=== PATIENT | female | born 1965 | race Caucasian/White ===

== ENCOUNTER 2016-05-12 23:30 | Inpatient (IN) | payer BC ==
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
--- NOTE | ~2016-05-12 | DS ---
Discharge Summary [facility] [address] [place]. [address] NAME: JAYLEEN VERDE : 65 STATUS : DIS IN PAT#: [id number] AGE: 50 ADM/REG DATE : 05/13/16 MR#: [id number] REPORT SERV DATE: 05/16/16 DICTATED BY: KAREEN GARCIA DATE: 05/15/16 REPORT STATUS : Draft TRANSCRIBED BY: MODMeli DATE: 05/15/16 ADMISSION DATE: 05/13/2016 DISCHARGE DATE: 05/15/2016 DIAGNOSES OF DISCHARGE: 1. Right-sided pneumothorax, tension pneumothorax, resolved, status post chest tube placement and discontinued. 2. Community-acquired pneumonia, resolved. 3. Chronic obstructive pulmonary disease exacerbation. 4. Acute on chronic respiratory failure. 5. Status post tracheostomy, which she uses 2 or 3 L per trach 24 hours a day. 6. Coronary artery disease. 7. Hypertension. 8. History of cirrhosis and EtOH abuse. 9. Depression with anxiety. 10.Tobacco abuse. 11.Peripheral neuropathy. 12.Chronic pain. CONSULTANTS ON THE CASE: Dr. Kerry Amor M.D., Pulmonary. PROCEDURES DONE DURING THIS HOSPITALIZATION: None. TESTS DONE DURING THIS HOSPITALIZATION: Include a CT scan of the chest with contrast performed on 05/13/2016 that showed that the patient had complete reduction of the pneumothorax and there was airspace disease in both lung puentes consistent with pneumonia. Follow up chest x-ray showed significant improvement of the infiltrates and complete resolution of her pneumothorax. Also, other tests done during this hospitalization include a procalcitonin of 0.87 on admission and folate level of 4.4. Her BNP was 241.4, hemoglobin A1c 10.4, lactate 1.7. White count was 23,000 at admission and 13.5 at discharge. Her blood cultures have remained negative at discharge. Her UA has been negative. HOSPITAL COURSE: This is a 50-year-old female who has been having a past medical history for COPD, also history of hypertension, coronary artery disease, cirrhosis of the liver, chronic pain, and also she is status post diabetes uncontrolled, tobacco dependency, and medical noncompliance, presenting to [facility] with increasing shortness of breath and chest pain. It is important to know that she did have a permanent tracheostomy, on oxygen 24 hours, and she has been presenting to [facility] with respiratory distress as well as pneumonia, COPD exacerbation, and right tension pneumothorax. The patient has been presenting to [facility] in the emergency room and PneumoDart was placed with near resolution of her spontaneous pneumothorax. For further details, please see history and physical of Dr. Gerhard Rubin. The patient has been admitted to Hospitalist Service, placed on IV antibiotics, broad spectrum. The patient has been seen by Dr. Kerry Amor during this hospitalization and CT scan of the chest has been ordered which showed complete resolution of her pneumothorax. Her Solu-Medrol has been discontinued and changed to oral prednisone. She has been continued on bronchodilators and antibiotic treatment. Her oxygen Discharge Summary [facility] [address] [place]. [address] NAME: JAYLEEN VERDE : 65 STATUS : DIS IN [facility]#: [id number] AGE: 50 ADM/REG DATE : 05/13/16 MR#: [id number] REPORT SERV DATE: 05/16/16 DICTATED BY: KAREEN GARCIA DATE: 05/15/16 REPORT STATUS : Draft TRANSCRIBED BY: BERNADETTE DATE: 05/15/16 has been weaned down to 2 to 3 L per nasal cannula, up to 3 L per nasal cannula that she uses 24 hours a day, and on 05/15/2016, the patient has been ready for discharge. Aggressive tobacco cessation education has been provided to the patient as well and since the patient has been an active smoker up to the current admission. The patient said that she has been on insulin pump prior to admission, but none currently, because according to the patient, her insulin pump has been missing, so she has been transitioned during this hospitalization to Levemir and NovoLog before meals and peer educator consult has been obtained during this hospitalization as well. On 05/15/2016, the patient has been ready for discharge. MEDICATIONS AT DISCHARGE: Would include Levaquin 750 p.o. daily; albuterol MDI two puffs q.i.d. p.r.n. for shortness of breath; Sterapred double strength 6-day pack, #1, use as directed; Lasix 20 mg p.o. daily; potassium chloride 10 mEq p.o. daily; Lopressor 25 p.o. b.i.d., hold for blood pressure systolic less or equal 105 and/or heart rate less or equal to 60; Protonix 40 mg p.o. daily; Neurontin 800 p.o. t.i.d.; Magnesium oxide 400 p.o. b.i.d.; insulin NovoLog 15 units subcutaneously before meals; digoxin 0.125 p.o. daily; [place] 10/325 one tab p.o. q.6 hours p.r.n. pain,#10, no refills; folate 1 mg p.o. daily, aspirin 81 mg p.o. daily, Wellbutrin SR one tablet p.o. b.i.d.; insulin Lantus 25 units subcutaneously at bedtime; Atarax 50 mg p.o. t.i.d. p.r.n. anxiety, #20, no refills; Spiriva HandiHaler one inhalation daily; and Symbicort 160/4.5 two puffs b.i.d. The patient has been advised to follow up with her primary care provider in one week after discharge and Pulmonary followup with Zina Barraza, nurse practitioner of Dr. Amor, Pulmonology, in two weeks after discharge with a chest x-ray check. That has been discussed extensively with the patient. All the questions have been answered in full. I have spent more than 35 minutes at discharging patient, Elizabeth Ni, and medication reconciliation, discharge summary, discharge instructions, written prescriptions as well. CF/MODL Kareen Garcia M.D. / [id number] CC: Kareen Garcia M.D.
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
[~2016-05-12 23:30] MED LIST: ABX IM; ASAB PO; ATV1 PO; BEN25 PO; BROVANA15 MCG INH; EFFEX25 PO; GLUCOPHAGE1000 MG PO; GLUCPH PO; HCTZ25B PO; IBU800 PO; KDUR20 PO; LEVEMIR SC; LOP50 PO; LORTAB10 PO; NEUR800 PO; NEXIUM40 PO; NITROII10C TOP; NITROQUICK0.4 MG SL; NITROSTAT0.4 MG SL; NORCO1 TAB PO; NOVOPEN SC; P10 PO; PRAVACHOL40 MG PO; PRAVACHOL80 MG PO; PREMPRO1 TAB PO; PROAIR HFA INH; PROTONIX PO; PULRESP.5 INH; REG PO; V5 PO; VANCOCIN HCL125 MG PO; VIST50 PO; ZOCOR20 PO; ZOL100 PO; ZOVI200CAP PO
[2016-05-13] MEDS ORDERED: *UNABLE3 (00:59)
[2016-05-13] MEDS ORDERED: NEBULIZER SOLN RX (01:15)
[2016-05-13] MEDS ORDERED: INSULIN PUMP (01:16)
[2016-05-13] MEDS ORDERED: BLOOD PRESSURE RX (01:16)
[2016-05-13] MEDS ORDERED: ASAB PO (01:17)
[2016-05-13] MEDS ORDERED: CHOLESTEROL RX (01:17)
[2016-05-13 01:44] LABS: BASOPHILS 0.1 %; BASOPHILS ABSOLUTE 0.02 10/3/uL (0.0-0.16); EOSINOPHILS 0.1 %; EOSINOPHILS ABSOLUTE 0.02 10/3/uL (0.0-0.53); ER CBC TAT 0 Hrs 06 MinsNP; HEMATOCRIT 42.2 % (36.0-48.0); HEMOGLOBIN 15.4 g/dL (12.0-16.0); IMMATURE GRANULOCYTES 0.8 %; IMMATURE GRANULOCYTES ABSOLUTE 0.17 10/3/uL (0.0-0.11); LYMPHOCYTES 3.1 %; LYMPHOCYTES ABSOLUTE 0.68 10/3/uL (0.67-4.30); MANUAL DIFF NO %; MEAN CORPUS HGB CONC 36.5 g/dL (32.0-36.0); MEAN CORPUSCULAR HEMOGLOB 31.2 pg (26.0-34.0); MEAN CORPUSCULAR VOLUME 85.6 fL (80-100); MEAN PLATELET VOLUME 11.3 fL (9.2-13.0); MONOCYTES ABSOLUTE 0.45 10/3/uL (0.21-1.20); NEUTROPHILS 93.9 %; NEUTROPHILS ABSOLUTE 20.68 10/3/uL (2.02-8.40); PLATELET COUNT 185 10/3/uL (150-400); RBC DISTRIBUTION WIDTH 13.3 % (12.0-16.0); RED CELL COUNT 4.93 10/6/uL (4.0-5.6)
[2016-05-13 01:51] LABS: INTERNATIONAL NORMAL RATI 1.1 UNITS (-); PARTIAL THROMBO TIME 24.7 SEC (22.5-37.2); PROTIME (NOT ORD) 14.4 SEC (12.0-14.5)
[2016-05-13 01:54] LABS: INFLUENZA A SCREEN NEGATIVE (NEGATIVE); INFLUENZA B SCREEN NEGATIVE (NEGATIVE)
[2016-05-13 02:06] LABS: LACTATE 1.7 MMOL/L (0.3-2.4)
[2016-05-13 02:10] LABS: ER DIFF TAT 0 Hrs 32 Mins; LYMPHOCYTES 3 %; LYMPHOCYTES ABSOLUTE (CALC) 0.66 10/3/uL (0.67-4.30); NEUTROPHILS ABSOLUTE (CALC) 21.34 10/3/uL (2.02-8.40); PLATELET ESTIMATE ADQ (ADEQUATE); RBC MORPHOLOGY NORM (NORMAL); SEGMENTED NEUTROPHIL (0) 97 %; TOTAL NUCLEATED CELLS 100
[2016-05-13 02:18] LABS: ASCORBIC ACID (UR NOT ORDER) NEG (NEG); BILIRUBIN, URINE NEGATIVE (NEG); ER URINALYSIS TAT 0 Hrs 05 Mins; KETONE, URINE 20 MG/DL (NEG); LEUKOCYTE ESTERASE(NOT OR NEG (NEG); NITRITE (URINE) NEG (NEG); WBC (NOT ORDERED) (RFLEX) 1 (0-5)
[2016-05-13 02:33] LABS: AMPHETAMINES (NOT ORD) NEG (NEG); BARBITURATES (NOT ORDERED NEG (NEG); BENZODIAZEPINES (NOT ORD) NEG (NEG); CANNABINOIDS (THC) NEG (NEG); COCAINE (NOT ORDERED) NEG (NEG); OPIATES POS (NEG); PHENCYCLIDINE(PCP) NEG (NEG); TRICYCLICS NEG (NEG)
[2016-05-13 02:56] LABS: BUN (BLOOD UREA NITROGEN) 14 MG/DL (6-23); CALCIUM, SERUM 8.9 MG/DL (8.5-10.4); CHLORIDE, SERUM 106 MMOL/L (96-112); CO2 (CARBON DIOXIDE) 20 MMOL/L (24-34); CPK (IF ELEVATED MB BANDS) 49 U/L (0-200); CREATININE 0.78 MG/DL (0.55-1.02); GFR AFRICAN AMERICAN 103 ML/MIN (>=60); GFR NON AFRICAN AMERICAN 89 ML/MIN (>=60); GLUCOSE, SERUM 402 MG/DL (60-99); POTASSIUM, SERUM 2.9 MMOL/L (3.5-5.3); SALICYLATE 6.6 MG/DL (-); SODIUM, SERUM 139 MMOL/L (135-148); TROPONIN I 0.03 NG/ML (<0.05)
[2016-05-13 02:57] LABS: ACETAMINOPHEN LEVEL (TYLENOL) < 2.0 MCG/ML (10.0-20.0); ALCOHOL < 10 MG/DL (0); CHEST PAIN PROFILE TAT 1 Hrs 18 Mins
[2016-05-13 03:17] LABS: ACETONE NEG
[2016-05-13 03:33] LABS: PROCALCITONIN 0.34 ng/mL (<0.5)
[2016-05-13 08:31] LABS: HEMOGLOBIN 13.2 g/dL (12.0-16.0); MEAN CORPUS HGB CONC 34.8 g/dL (32.0-36.0); MEAN CORPUSCULAR HEMOGLOB 29.3 pg (26.0-34.0); MEAN PLATELET VOLUME 11.5 fL (9.2-13.0); PLATELET COUNT 200 10/3/uL (150-400); RBC DISTRIBUTION WIDTH 13.6 % (12.0-16.0); RED CELL COUNT 4.51 10/6/uL (4.0-5.6); WHITE BLOOD CELLS 23.2 10/3/uL (4.5-10.5)
[2016-05-13 08:32] LABS: HEMATOCRIT 37.9 % (36.0-48.0); MANUAL DIFF YES %
[2016-05-13 08:34] LABS: BUN (BLOOD UREA NITROGEN) 14 MG/DL (6-23); CALCIUM, SERUM 8.5 MG/DL (8.5-10.4); CHLORIDE, SERUM 106 MMOL/L (96-112); CO2 (CARBON DIOXIDE) 21 MMOL/L (24-34); CREATININE 0.77 MG/DL (0.55-1.02); GFR AFRICAN AMERICAN 104 ML/MIN (>=60); GFR NON AFRICAN AMERICAN 90 ML/MIN (>=60); SODIUM, SERUM 138 MMOL/L (135-148)
[2016-05-13 08:41] LABS: GLUCOSE, SERUM 375 MG/DL (60-99); POTASSIUM, SERUM 3.8 MMOL/L (3.5-5.3)
[2016-05-13 08:54] LABS: BAND NEUTROPHILS 5 %; LYMPHOCYTES 6 %; LYMPHOCYTES ABSOLUTE (CALC) 1.39 10/3/uL (0.67-4.30); MONOCYTES 3 %; NEUTROPHILS ABSOLUTE (CALC) 21.11 10/3/uL (2.02-8.40); PLATELET ESTIMATE ADQ (ADEQUATE); SEGMENTED NEUTROPHIL (0) 86 %; TOTAL NUCLEATED CELLS 100
[2016-05-13 08:55] LABS: RBC MORPHOLOGY NORM (NORMAL)
[2016-05-13 09:58] LABS: PROCALCITONIN 0.87 ng/mL (<0.5)
[2016-05-13] MEDS ORDERED: NEUR400 PO (15:48)
[2016-05-13] MEDS ORDERED: KLOR-CON 1010 MEQ PO (15:48)
[2016-05-13] MEDS ORDERED: NITROSTAT0.3 MG SL (15:49)
[2016-05-13] MEDS ORDERED: PROTONIX PO (15:49)
[2016-05-13] MEDS ORDERED: L20 PO (15:49)
[2016-05-13] MEDS ORDERED: PROVHFA INH (15:50)
[2016-05-13] MEDS ORDERED: LAN125 PO (15:50)
[2016-05-13] MEDS ORDERED: WELLSR100 PO (15:51)
[2016-05-13] MEDS ORDERED: ATARAX50B PO (15:51)
[2016-05-13] MEDS ORDERED: MAGOX4 PO (15:51)
[2016-05-13] MEDS ORDERED: COREG3 PO (15:52)
[2016-05-13 18:55] LABS: DIGOXIN 0.1 NG/ML (0.8-2.0)
[2016-05-14 06:54] LABS: BASOPHILS 0.1 %; BASOPHILS ABSOLUTE 0.01 10/3/uL (0.0-0.16); EOSINOPHILS 0.1 %; EOSINOPHILS ABSOLUTE 0.02 10/3/uL (0.0-0.53); IMMATURE GRANULOCYTES 0.5 %; IMMATURE GRANULOCYTES ABSOLUTE 0.09 10/3/uL (0.0-0.11); LYMPHOCYTES 13.4 %; MEAN CORPUS HGB CONC 35.7 g/dL (32.0-36.0); MEAN CORPUSCULAR HEMOGLOB 30.8 pg (26.0-34.0); MEAN CORPUSCULAR VOLUME 86.4 fL (80-100); MEAN PLATELET VOLUME 11.4 fL (9.2-13.0); MONOCYTES 3.4 %; MONOCYTES ABSOLUTE 0.58 10/3/uL (0.21-1.20); NEUTROPHILS 82.5 %; NEUTROPHILS ABSOLUTE 14.13 10/3/uL (2.02-8.40); PLATELET COUNT 180 10/3/uL (150-400); RBC DISTRIBUTION WIDTH 13.4 % (12.0-16.0); RED CELL COUNT 3.89 10/6/uL (4.0-5.6); WHITE BLOOD CELLS 17.1 10/3/uL (4.5-10.5)
[2016-05-14 06:55] LABS: HEMATOCRIT 33.6 % (36.0-48.0); MANUAL DIFF NO %
[2016-05-14 07:14] LABS: ALKALINE PHOSPHATASE 124 U/L (45-117); CALCIUM, SERUM 8.2 MG/DL (8.5-10.4); CHLORIDE, SERUM 107 MMOL/L (96-112); CO2 (CARBON DIOXIDE) 22 MMOL/L (24-34); CREATININE 0.68 MG/DL (0.55-1.02); GFR AFRICAN AMERICAN 118 ML/MIN (>=60); GFR NON AFRICAN AMERICAN 102 ML/MIN (>=60); POTASSIUM, SERUM 3.9 MMOL/L (3.5-5.3); SGOT(AST) 7 U/L (5-40); SGPT(ALT) 15 U/L (5-65); SODIUM, SERUM 139 MMOL/L (135-148)
[2016-05-14 07:15] LABS: A/G RATIO 0.6 (0.7-1.9); ALBUMIN 2.1 G/DL (3.5-5.0); BUN (BLOOD UREA NITROGEN) 22 MG/DL (6-23); GLOBULIN 3.3 G/DL (2.5-4.1); GLUCOSE, SERUM 281 MG/DL (60-99); TOTAL BILIRUBIN 0.3 MG/DL (0-1.2); TOTAL PROTEIN 5.4 G/DL (6.0-8.5)
[2016-05-14 13:56] LABS: FOLATE 4.4 NG/ML (>5.2); FREE T4 1.08 NG/DL (0.76-1.46); ULTRASENSITIVE TSH 0.207 MCIU/ML (0.358-3.740)
[2016-05-15 06:22] LABS: BASOPHILS 0.1 %; BASOPHILS ABSOLUTE 0.01 10/3/uL (0.0-0.16); EOSINOPHILS 0.1 %; EOSINOPHILS ABSOLUTE 0.01 10/3/uL (0.0-0.53); HEMATOCRIT 34.9 % (36.0-48.0); IMMATURE GRANULOCYTES ABSOLUTE 0.13 10/3/uL (0.0-0.11); LYMPHOCYTES 12.2 %; LYMPHOCYTES ABSOLUTE 1.65 10/3/uL (0.67-4.30); MEAN CORPUS HGB CONC 34.4 g/dL (32.0-36.0); MEAN CORPUSCULAR HEMOGLOB 30.5 pg (26.0-34.0); MEAN CORPUSCULAR VOLUME 88.8 fL (80-100); MEAN PLATELET VOLUME 11.2 fL (9.2-13.0); MONOCYTES 3.4 %; MONOCYTES ABSOLUTE 0.46 10/3/uL (0.21-1.20); NEUTROPHILS 83.2 %; NEUTROPHILS ABSOLUTE 11.22 10/3/uL (2.02-8.40); PLATELET COUNT 199 10/3/uL (150-400); RBC DISTRIBUTION WIDTH 13.4 % (12.0-16.0); RED CELL COUNT 3.93 10/6/uL (4.0-5.6); WHITE BLOOD CELLS 13.5 10/3/uL (4.5-10.5)
[2016-05-15 06:24] LABS: MANUAL DIFF NO %
[2016-05-15 06:42] LABS: CALCIUM, SERUM 8.4 MG/DL (8.5-10.4); CHLORIDE, SERUM 105 MMOL/L (96-112); CO2 (CARBON DIOXIDE) 23 MMOL/L (24-34); CREATININE 0.96 MG/DL (0.55-1.02); GFR AFRICAN AMERICAN 80 ML/MIN (>=60); GFR NON AFRICAN AMERICAN 69 ML/MIN (>=60); SODIUM, SERUM 137 MMOL/L (135-148)
[2016-05-15 06:43] LABS: BUN (BLOOD UREA NITROGEN) 26 MG/DL (6-23); GLUCOSE, SERUM 443 MG/DL (60-99)
[2016-05-15] MEDS ORDERED: NOVOLOG SC (12:59)
[2016-05-15] MEDS ORDERED: LEVEMIR SC (13:00)
[2016-05-15] MEDS ORDERED: LOP25 PO (13:00)
[2016-05-15] MEDS ORDERED: STERAPRED DS10 MG (13:05)
[2016-05-15] MEDS ORDERED: NORCO1 TAB PO (13:05)
[2016-05-15] MEDS ORDERED: ATARAX50B PO (13:06)
[2016-05-15] MEDS ORDERED: SPIRIVA INH (13:06)
[2016-05-15] MEDS ORDERED: SYMBICORT 160/41 INH INH (13:07)
== END 2016-05-15 16:16 | disposition home health service (06) | DRG 199 ==
LOC: ER 23:30 → 7NO 05-13 02:20 → 5NO 05-13 02:49
PROVIDERS: Hospitalist; Internal Medicine
DX: J93.83 Other pneumothorax (principal); J18.9 Pneumonia, unspecified organism; J96.20 Acute and chronic respiratory failure, unspecified whether with hypoxia or hypercapnia; Z93.0 Tracheostomy status; J44.1 Chronic obstructive pulmonary disease with (acute) exacerbation; K70.30 Alcoholic cirrhosis of liver without ascites; Z79.4 Long term (current) use of insulin; Z96.41 Presence of insulin pump (external) (internal); Z88.2 Allergy status to sulfonamides; F32.9 Major depressive disorder, single episode, unspecified; F41.9 Anxiety disorder, unspecified; Z90.49 Acquired absence of other specified parts of digestive tract; F17.210 Nicotine dependence, cigarettes, uncomplicated; E10.65 Type 1 diabetes mellitus with hyperglycemia; I10 Essential (primary) hypertension; G62.9 Polyneuropathy, unspecified; G89.29 Other chronic pain; I25.10 Atherosclerotic heart disease of native coronary artery without angina pectoris
CPT/HCPCS: 36600; 71010; 71260; 80048; 80053; 80162; 80202; 80305; 80307; 81001; 82009; 82330; 82550; 82607; 82746; 82803; 82947; 82962; 83036; 83605; 83690; 83735; 83880; 84132; 84145; 84295; 84439; 84443; 84484; 85014; 85025; 85610; 85730; 87040; 87449; 87804; 93005; 94640; 96374; 99291; A9270-GY; J0456; J1956; J2543; J2920; J3370; Q9967